=== PATIENT | female | born 1955 | race Two or more races ===

== ENCOUNTER → 2020-03-19 | Outpatient (CLI) | payer MEDICARE | END | disposition home or self-care (01) | LOC: MRI 09:26 | PROVIDERS: ATTEND Neurological Surgery | DX: M48.07 Spinal stenosis, lumbosacral region (principal); M48.03 Spinal stenosis, cervicothoracic region; G95.89 Other specified diseases of spinal cord | CPT/HCPCS: 72141; 72148 ==